=== PATIENT | male | born 1985 | race Caucasian/White ===

== ENCOUNTER 2022-09-06 16:28 | Inpatient (IN) | payer MEDICAID, OTHER ==
[~2022-09-06] VITALS: Ht 180.3 cm; Wt 84.4 kg
[2022-09-06 18:19] LABS: Basophils # (auto) 0.1 10 ^3/uL (0-0.2); Basophils % (auto) 1.3 % (0.0-2.0); Eosinophils # (auto) 0.2 10 ^3/uL (0-0.8); Eosinophils % (auto) 2.9 % (0.0-7.0); Hematocrit 26.1 % (41.0-53.0); Hemoglobin 8.8 g/dL (13.5-17.5); Lymphocytes # (auto) 1.3 10 ^3/uL (0.4-5.4); Lymphocytes % (auto) 17.3 % (10.0-50.0); Mean Corpuscular Hemoglobin 28.6 pg (28.0-32.0); Mean Corpuscular Hgb Conc. 33.8 g/dL (32.0-36.0); Mean Corpuscular Volume 84.7 fL (80.0-100.0); Monocytes # (auto) 0.4 10 ^3/uL (0-1.3); Monocytes % (auto) 5.8 % (0.0-12.0); Neutrophils # (auto) 5.5 10 ^3/uL (1.6-8.6); Neutrophils % (auto) 72.7 % (37.0-80.0); Red Blood Cells 3.08 10^6/uL (4.5-5.90); Red Cell Distribution Width 16.4 % (11.8-14.3); White Blood Cell 7.6 10^3/uL (4.4-10.8)
[2022-09-06] MEDS ORDERED: FUROSEMIDE 100 MG/10ML VIAL IV ONE (18:30)
[2022-09-06 18:37] LABS: Albumin 1.3 g/dL (3.4-5.0); Calcium 6.2 mg/dL (8.5-10.1); Magnesium 1.9 mg/dL (1.6-2.6); Potassium 4.2 mmol/L (3.5-5.1)
[2022-09-06 18:40] LABS: Bilirubin, Total 0.1 mg/dL (0.2-1.0); Total Protein 4.5 g/dL (6.4-8.2)
[2022-09-06] MEDS ORDERED: ACETAMINOPHEN 325 MG TAB PO PRN (21:00)
[2022-09-06] MEDS ORDERED: ONDANSETRON HCL 4 MG/2 ML VIAL IV PRN (21:00)
[2022-09-06] MEDS ORDERED: TEMAZEPAM 15 MG CAP PO PRN (21:00)
[2022-09-07 03:54] LABS: Urine Bacteria NONE SEEN /hpf (None Seen); Urine Blood TRACE /uL (Negative); Urine Hyaline Cast FEW /lpf (0 - 2); Urine Specific Gravity 1.013 (1.001-1.035); Urine WBC 4 /hpf (0 - 3)
[2022-09-07 04:06] LABS: Alcohol, Urine < 3.0 mg/dL (0-10); Amphetamine Screen, Urine NEGATIVE (NEGATIVE); Barbiturate Scree,Urine NEGATIVE (NEGATIVE); Benzodiazephine Screen, Urine NEGATIVE (NEGATIVE); Cannabinoid Screen, Urine POSITIVE (NEGATIVE); Cocaine Screen, Urine NEGATIVE (NEGATIVE); Opiate Scree,Urine POSITIVE (NEGATIVE); Phencyclidine Screen, Urine NEGATIVE (NEGATIVE)
[2022-09-07] MEDS ORDERED: OXYCODONE W/ ACETAMINOPHEN 5/325MG TABLET PO ONE (04:30)
[2022-09-07] MEDS: FUROSEMIDE 20 MG/2 ML VIAL IV SCH ×2 (06:14→18:37)
[2022-09-07 09:58] LABS: Basophils # (auto) 0.1 10 ^3/uL (0-0.2); Basophils % (auto) 1.4 % (0.0-2.0); Eosinophils # (auto) 0.3 10 ^3/uL (0-0.8); Eosinophils % (auto) 3.9 % (0.0-7.0); Hematocrit 27.9 % (41.0-53.0); Hemoglobin 9.2 g/dL (13.5-17.5); Lymphocytes # (auto) 1.7 10 ^3/uL (0.4-5.4); Lymphocytes % (auto) 20.9 % (10.0-50.0); Mean Corpuscular Hemoglobin 28.8 pg (28.0-32.0); Mean Corpuscular Hgb Conc. 33.2 g/dL (32.0-36.0); Mean Corpuscular Volume 86.8 fL (80.0-100.0); Monocytes # (auto) 0.5 10 ^3/uL (0-1.3); Monocytes % (auto) 6.5 % (0.0-12.0); Neutrophils # (auto) 5.4 10 ^3/uL (1.6-8.6); Neutrophils % (auto) 67.3 % (37.0-80.0); Red Blood Cells 3.21 10^6/uL (4.5-5.90); Red Cell Distribution Width 16.4 % (11.8-14.3)
[2022-09-07 10:16] LABS: Albumin 1.3 g/dL (3.4-5.0); Calcium 6.5 mg/dL (8.5-10.1); Potassium 4.1 mmol/L (3.5-5.1)
[2022-09-07 10:19] LABS: BUN/Creatinine Ratio 7.5; Bilirubin, Total 0.1 mg/dL (0.2-1.0); Total Protein 4.4 g/dL (6.4-8.2)
[2022-09-07] MEDS: PANTOPRAZOLE 40 MG TAB PO SCH (10:43)
[2022-09-07 11:01] LABS: Protein, Urine 1025.7 mg/dL (0.0-11.9)
[2022-09-07 17:46] VITALS: BP 150/97
[2022-09-07 22:44] VITALS: BP 145/84
[2022-09-08] MEDS: FUROSEMIDE 20 MG/2 ML VIAL IV SCH ×2 (05:05→17:58)
[2022-09-08] MEDS: HYDROcodone-ACET 5/325MG TAB PO PRN ×2 (05:10→20:17)
[2022-09-08 05:38] VITALS: BP 141/81
[2022-09-08] MEDS: PANTOPRAZOLE 40 MG TAB PO SCH (10:00)
[2022-09-08 10:25] VITALS: BP 143/81
[2022-09-08] MEDS: SODIUM BICARBONATE 50ML VIAL 50 ML in SOD CHL 0.45% 1,000 ML IV SCH (11:00)
[2022-09-08 12:12] VITALS: BP 132/77
[2022-09-08 16:34] VITALS: BP 129/80
[2022-09-08 22:00] VITALS: BP 134/91
[2022-09-08 22:27] LABS: BUN/Creatinine Ratio 6.6; Calcium 6.2 mg/dL (8.5-10.1); Potassium 4.3 mmol/L (3.5-5.1)
[2022-09-08 22:40] LABS: Free T3 1.91 pg/mL (2.3-4.2); Free T4 (Free Thyroxine) 0.58 ng/dL (0.89-1.76)
[2022-09-09 05:00] VITALS: BP 136/83
[2022-09-09] MEDS: FUROSEMIDE 20 MG/2 ML VIAL IV SCH (06:22)
[2022-09-09] MEDS: SODIUM BICARBONATE 50ML VIAL 50 ML in SOD CHL 0.45% 1,000 ML IV SCH (06:24)
[2022-09-09 06:53] LABS: Hemoglobin 7.5 g/dL (13.5-17.5)
[2022-09-09 06:55] LABS: Basophils # (auto) 0.1 10 ^3/uL (0-0.2); Basophils % (auto) 1.5 % (0.0-2.0); Eosinophils # (auto) 0.2 10 ^3/uL (0-0.8); Eosinophils % (auto) 3.2 % (0.0-7.0); Hematocrit 22.4 % (41.0-53.0); Lymphocytes # (auto) 1.6 10 ^3/uL (0.4-5.4); Lymphocytes % (auto) 24.9 % (10.0-50.0); Mean Corpuscular Hemoglobin 28.2 pg (28.0-32.0); Mean Corpuscular Hgb Conc. 33.6 g/dL (32.0-36.0); Mean Corpuscular Volume 83.9 fL (80.0-100.0); Monocytes # (auto) 0.5 10 ^3/uL (0-1.3); Monocytes % (auto) 7.3 % (0.0-12.0); Neutrophils % (auto) 63.1 % (37.0-80.0); Red Blood Cells 2.67 10^6/uL (4.5-5.90); Red Cell Distribution Width 15.9 % (11.8-14.3); White Blood Cell 6.3 10^3/uL (4.4-10.8)
[2022-09-09 07:10] LABS: Calcium 6.2 mg/dL (8.5-10.1); Magnesium 1.9 mg/dL (1.6-2.6); Potassium 4.1 mmol/L (3.5-5.1)
[2022-09-09] MEDS: HYDROcodone-ACET 5/325MG TAB PO PRN ×2 (09:24→20:41)
[2022-09-09] MEDS: PANTOPRAZOLE 40 MG TAB PO SCH (09:34)
[2022-09-09] MEDS: HEPARIN SODIUM (PORCINE) 5000 UNITS/ML 1ML VIAL SC SCH ×2 (09:35→22:00)
[2022-09-09] MEDS: LEVOTHYROXINE SODIUM 25 MCG TAB PO SCH (12:51)
[2022-09-09 13:13] VITALS: BP 135/68
[2022-09-09] MEDS: SODIUM BICARBONATE 650 MG TAB PO SCH ×2 (14:46→22:39)
[2022-09-09 17:00] VITALS: BP 132/83
[2022-09-09] MEDS: BUMETANIDE 2.5mg/10ml (0.25 mg/ml) INJ IV SCH (17:36)
[2022-09-09] MEDS: SEVELAMER 800 MG TAB PO SCH (17:36)
[2022-09-09 22:00] VITALS: BP 136/86
[2022-09-09 22:33] LABS: INR 1.09 (0.9-1.15); Partial Thromboplastin Time 28.2 sec (24.6-33.4)
[2022-09-10 05:08] VITALS: BP 145/79
[2022-09-10] MEDS: LEVOTHYROXINE SODIUM 25 MCG TAB PO SCH (06:32)
[2022-09-10] MEDS: SODIUM BICARBONATE 650 MG TAB PO SCH ×3 (06:32→21:45)
[2022-09-10] MEDS: BUMETANIDE 2.5mg/10ml (0.25 mg/ml) INJ IV SCH ×2 (06:32→17:58)
[2022-09-10] MEDS: SEVELAMER 800 MG TAB PO SCH ×3 (08:26→17:58)
[2022-09-10] MEDS: HYDROcodone-ACET 5/325MG TAB PO PRN ×2 (08:27→21:46)
[2022-09-10 09:01] VITALS: BP 198/113
[2022-09-10] MEDS: PANTOPRAZOLE 40 MG TAB PO SCH (09:59)
[2022-09-10] MEDS: HEPARIN SODIUM (PORCINE) 5000 UNITS/ML 1ML VIAL SC SCH ×2 (10:11→21:46)
[2022-09-10 13:00] VITALS: BP_SYST 133; BP_SYST 144; BP_DIAS 73; BP_DIAS 80
[2022-09-10 17:00] VITALS: BP 130/83
[2022-09-10 22:00] VITALS: BP 120/76
[2022-09-10 23:38] LABS: Albumin 1.2 g/dL (3.4-5.0); Calcium 6.7 mg/dL (8.5-10.1)
[2022-09-10 23:43] LABS: Bilirubin, Total 0.2 mg/dL (0.2-1.0); Total Protein 3.8 g/dL (6.4-8.2)
[2022-09-11 05:00] VITALS: BP 140/91
[2022-09-11] MEDS: SODIUM BICARBONATE 650 MG TAB PO SCH ×3 (06:07→22:18)
[2022-09-11] MEDS: BUMETANIDE 2.5mg/10ml (0.25 mg/ml) INJ IV SCH ×2 (06:07→18:47)
[2022-09-11] MEDS: LEVOTHYROXINE SODIUM 25 MCG TAB PO SCH (06:14)
[2022-09-11] MEDS: SEVELAMER 800 MG TAB PO SCH ×4 (08:17→18:48)
[2022-09-11] MEDS: HYDROcodone-ACET 5/325MG TAB PO PRN ×2 (08:18→22:18)
[2022-09-11 09:00] VITALS: BP 140/81
[2022-09-11] MEDS: PANTOPRAZOLE 40 MG TAB PO SCH (09:42)
[2022-09-11] MEDS: HEPARIN SODIUM (PORCINE) 5000 UNITS/ML 1ML VIAL SC SCH (09:43)
[2022-09-11] MEDS: SODIUM FERR GLUC 62.5MG/5ML 125 MG in SODIUM CHL 0.9% 100 ML IV SCH (12:41)
[2022-09-11 13:00] VITALS: BP 151/86
[2022-09-11 17:00] VITALS: BP 142/80
[2022-09-11 20:48] LABS: Alcohol, Urine < 3.0 mg/dL (0-10); Amphetamine Screen, Urine NEGATIVE (NEGATIVE); Barbiturate Scree,Urine NEGATIVE (NEGATIVE); Benzodiazephine Screen, Urine NEGATIVE (NEGATIVE); Cocaine Screen, Urine NEGATIVE (NEGATIVE); Opiate Scree,Urine POSITIVE (NEGATIVE); Phencyclidine Screen, Urine NEGATIVE (NEGATIVE)
[2022-09-11 20:52] LABS: Cannabinoid Screen, Urine NEGATIVE (NEGATIVE)
[2022-09-11 21:42] VITALS: BP 160/80
[2022-09-12 05:00] VITALS: BP 140/75
[2022-09-12] MEDS: SODIUM BICARBONATE 650 MG TAB PO SCH ×3 (06:00→22:00)
[2022-09-12] MEDS: BUMETANIDE 2.5mg/10ml (0.25 mg/ml) INJ IV SCH ×2 (06:52→18:00)
[2022-09-12 06:53] LABS: Eosinophils # (auto) 0.2 10 ^3/uL (0-0.8); Hemoglobin 7.3 g/dL (13.5-17.5); Mean Corpuscular Hemoglobin 28.8 pg (28.0-32.0); Monocytes # (auto) 0.4 10 ^3/uL (0-1.3)
[2022-09-12] MEDS: LEVOTHYROXINE SODIUM 25 MCG TAB PO SCH (06:53)
[2022-09-12 06:55] LABS: Basophils # (auto) 0.1 10 ^3/uL (0-0.2); Basophils % (auto) 1.4 % (0.0-2.0); Eosinophils % (auto) 2.9 % (0.0-7.0); Hematocrit 21.1 % (41.0-53.0); Lymphocytes # (auto) 1.6 10 ^3/uL (0.4-5.4); Lymphocytes % (auto) 23.5 % (10.0-50.0); Mean Corpuscular Hgb Conc. 34.6 g/dL (32.0-36.0); Mean Corpuscular Volume 83.4 fL (80.0-100.0); Monocytes % (auto) 5.6 % (0.0-12.0); Neutrophils # (auto) 4.7 10 ^3/uL (1.6-8.6); Neutrophils % (auto) 66.6 % (37.0-80.0); Nucleated Red Blood Cells % 0.1 %; Red Blood Cells 2.53 10^6/uL (4.5-5.90); Red Cell Distribution Width 15.9 % (11.8-14.3)
[2022-09-12] MEDS ORDERED: SODIUM CHL 0.9% 1000 ML BAG XX ONE (07:00)
[2022-09-12 07:10] LABS: INR 1.08 (0.9-1.15); Partial Thromboplastin Time 30.2 sec (24.6-33.4)
[2022-09-12 07:14] LABS: Albumin 1.1 g/dL (3.4-5.0); Calcium 6.7 mg/dL (8.5-10.1); Potassium 3.8 mmol/L (3.5-5.1)
[2022-09-12 07:16] LABS: % Iron Saturation 44.8 % (20-55)
[2022-09-12 07:18] LABS: BUN/Creatinine Ratio 6.7; Bilirubin, Total 0.2 mg/dL (0.2-1.0); Phosphorus 8.3 mg/dL (2.5-4.90); Total Protein 4.2 g/dL (6.4-8.2)
[2022-09-12] MEDS: SEVELAMER 800 MG TAB PO SCH ×3 (08:00→18:00)
[2022-09-12 09:00] VITALS: BP 144/91
[2022-09-12] MEDS: PANTOPRAZOLE 40 MG TAB PO SCH (09:09)
[2022-09-12] MEDS: B-COMPLEX W/ C & FOLIC ACID(NEPHROVITE TAB) PO SCH (09:09)
[2022-09-12] MEDS: HYDROcodone-ACET 5/325MG TAB PO PRN (09:10)
[2022-09-12] MEDS ORDERED: HEPARIN SODIUM (PORCINE) 5000 UNITS/ML 1ML VIAL ONE (11:26)
[2022-09-12] MEDS ORDERED: fentaNYL CITRATE 100 MCG/2 ML VL ONE ×2 (11:27→12:25)
[2022-09-12] MEDS ORDERED: MIDAZOLAM HCL 2MG/2ML 2ml VIAL (1mg/ml) ONE ×2 (11:27→12:25)
[2022-09-12] MEDS ORDERED: LIDOCAINE 2%HCL (LOCAL ANESTH.) INJ 20ML MDV ONE (11:35)
[2022-09-12 12:16] VITALS: BP 143/96
[2022-09-12 12:28] VITALS: BP 135/83
[2022-09-12 13:55] LABS: Hepatitis C Antibody Negative (Negative)
[2022-09-12] MEDS: SODIUM FERR GLUC 62.5MG/5ML 125 MG in SODIUM CHL 0.9% 100 ML IV SCH (14:54)
[2022-09-12] MEDS ORDERED: ALBUMIN 25% 100 ML IV SCH (17:00)
[2022-09-12] MEDS ORDERED: EPOETIN ALFA-EPBX 10,000 UNIT/1ML VIAL SC ONE (21:00)
[2022-09-12 21:49] VITALS: BP 145/94
[2022-09-13 04:53] VITALS: BP 134/91
[2022-09-13] MEDS: BUMETANIDE 2.5mg/10ml (0.25 mg/ml) INJ IV SCH ×2 (06:35→17:41)
[2022-09-13] MEDS: SODIUM BICARBONATE 650 MG TAB PO SCH ×3 (06:36→21:13)
[2022-09-13] MEDS: LEVOTHYROXINE SODIUM 25 MCG TAB PO SCH (06:36)
[2022-09-13 07:02] LABS: Albumin 1.3 g/dL (3.4-5.0); Calcium 6.9 mg/dL (8.5-10.1)
[2022-09-13 07:08] LABS: BUN/Creatinine Ratio 6.5; Bilirubin, Total 0.3 mg/dL (0.2-1.0); Total Protein 4.3 g/dL (6.4-8.2)
[2022-09-13 08:00] VITALS: BP 136/75
[2022-09-13] MEDS: B-COMPLEX W/ C & FOLIC ACID(NEPHROVITE TAB) PO SCH (10:11)
[2022-09-13] MEDS: PANTOPRAZOLE 40 MG TAB PO SCH (10:11)
[2022-09-13] MEDS: SEVELAMER 800 MG TAB PO SCH ×3 (10:11→17:48)
[2022-09-13 12:00] VITALS: BP 172/111
[2022-09-13] MEDS: SODIUM FERR GLUC 62.5MG/5ML 125 MG in SODIUM CHL 0.9% 100 ML IV SCH (12:21)
[2022-09-13] MEDS: HYDROcodone-ACET 5/325MG TAB PO PRN (12:31)
[2022-09-13 16:00] VITALS: BP 138/82
[2022-09-13 22:00] VITALS: BP 159/70
[2022-09-14 05:00] VITALS: BP 151/97
[2022-09-14] MEDS: BUMETANIDE 2.5mg/10ml (0.25 mg/ml) INJ IV SCH ×2 (06:27→18:17)
[2022-09-14] MEDS: LEVOTHYROXINE SODIUM 25 MCG TAB PO SCH (06:28)
[2022-09-14] MEDS: SODIUM BICARBONATE 650 MG TAB PO SCH ×3 (06:28→22:07)
[2022-09-14 08:35] VITALS: BP 134/92
[2022-09-14] MEDS: PANTOPRAZOLE 40 MG TAB PO SCH (09:13)
[2022-09-14] MEDS: B-COMPLEX W/ C & FOLIC ACID(NEPHROVITE TAB) PO SCH (09:13)
[2022-09-14] MEDS: SEVELAMER 800 MG TAB PO SCH ×3 (09:13→18:15)
[2022-09-14 12:40] VITALS: BP 149/92
[2022-09-14] MEDS: SODIUM FERR GLUC 62.5MG/5ML 125 MG in SODIUM CHL 0.9% 100 ML IV SCH (13:05)
[2022-09-14 14:29] LABS: Potassium 3.8 mmol/L (3.5-5.1)
[2022-09-14 14:30] LABS: Albumin 1.3 g/dL (3.4-5.0)
[2022-09-14 14:33] LABS: BUN/Creatinine Ratio 6.7; Bilirubin, Total 0.2 mg/dL (0.2-1.0); Total Protein 4.4 g/dL (6.4-8.2)
[2022-09-14] MEDS: HYDROcodone-ACET 10/325MG TAB PO PRN ×2 (16:11→22:07)
[2022-09-14 16:30] VITALS: BP 130/85
[2022-09-14 22:00] VITALS: BP 135/93
[2022-09-15] VITALS (7 sets, daily range): BP systolic 128–153; BP diastolic 72–107
[2022-09-15] MEDS: SODIUM BICARBONATE 650 MG TAB PO SCH ×3 (05:58→21:50)
[2022-09-15] MEDS: LEVOTHYROXINE SODIUM 25 MCG TAB PO SCH (05:58)
[2022-09-15] MEDS: BUMETANIDE 2.5mg/10ml (0.25 mg/ml) INJ IV SCH ×2 (05:58→18:12)
[2022-09-15] MEDS: SEVELAMER 800 MG TAB PO SCH ×3 (09:20→18:33)
[2022-09-15] MEDS: PANTOPRAZOLE 40 MG TAB PO SCH (09:21)
[2022-09-15] MEDS: B-COMPLEX W/ C & FOLIC ACID(NEPHROVITE TAB) PO SCH (09:21)
[2022-09-15] MEDS ORDERED: PANT40T PO (10:58)
[2022-09-15] MEDS ORDERED: SEVE800T PO (10:58)
[2022-09-15] MEDS ORDERED: LEV25T PO (10:58)
[2022-09-15] MEDS ORDERED: FOLITAB23 PO (10:59)
[2022-09-15] MEDS: HYDROcodone-ACET 10/325MG TAB PO PRN (17:22)
[2022-09-16 05:00] VITALS: BP 149/90
[2022-09-16] MEDS: BUMETANIDE 2.5mg/10ml (0.25 mg/ml) INJ IV SCH ×2 (06:04→18:22)
[2022-09-16] MEDS: SODIUM BICARBONATE 650 MG TAB PO SCH ×3 (06:04→21:44)
[2022-09-16] MEDS: LEVOTHYROXINE SODIUM 25 MCG TAB PO SCH (06:05)
[2022-09-16] MEDS: SEVELAMER 800 MG TAB PO SCH ×3 (08:11→18:22)
[2022-09-16 09:05] VITALS: BP 144/88
[2022-09-16] MEDS: B-COMPLEX W/ C & FOLIC ACID(NEPHROVITE TAB) PO SCH (10:17)
[2022-09-16] MEDS: HYDROcodone-ACET 10/325MG TAB PO PRN ×2 (10:18→21:45)
[2022-09-16] MEDS: PANTOPRAZOLE 40 MG TAB PO SCH (10:18)
[2022-09-16 13:07] VITALS: BP_SYST 142; BP_SYST 153; BP_DIAS 109; BP_DIAS 75
[2022-09-16 17:11] VITALS: BP 152/97
[2022-09-16 22:00] VITALS: BP 141/96
[2022-09-17 05:00] VITALS: BP 141/95
[2022-09-17] MEDS: HYDROcodone-ACET 10/325MG TAB PO PRN (06:22)
[2022-09-17] MEDS: SODIUM BICARBONATE 650 MG TAB PO SCH ×2 (06:24→14:00)
[2022-09-17] MEDS: LEVOTHYROXINE SODIUM 25 MCG TAB PO SCH (06:24)
[2022-09-17] MEDS: BUMETANIDE 2.5mg/10ml (0.25 mg/ml) INJ IV SCH (06:28)
[2022-09-17] MEDS: SEVELAMER 800 MG TAB PO SCH ×2 (08:50→12:00)
[2022-09-17 09:00] VITALS: BP 142/96
[2022-09-17] MEDS: B-COMPLEX W/ C & FOLIC ACID(NEPHROVITE TAB) PO SCH (09:56)
[2022-09-17] MEDS: PANTOPRAZOLE 40 MG TAB PO SCH (09:57)
== END 2022-09-17 14:00 | disposition home or self-care (01) | DRG 469 ==
LOC: ER 16:28 → OVERFLOW 20:59 → EAST 09-07 16:21
PROVIDERS: ADMIT Nurse Practitioner; ATTEND Internal Medicine
PROC: 0JH63XZ Insertion of Tunneled Vascular Access Device into Chest Subcutaneous Tissue and Fascia, Percutaneous Approach (ICD-10-PCS; principal; 2022-09-12)
PROC: 0TB13ZX Excision of Left Kidney, Percutaneous Approach, Diagnostic (ICD-10-PCS; 2022-09-12)
PROC: 02HV33Z Insertion of Infusion Device into Superior Vena Cava, Percutaneous Approach (ICD-10-PCS; 2022-09-12)
PROC: B548ZZA Ultrasonography of Superior Vena Cava, Guidance (ICD-10-PCS; 2022-09-12)
PROC: B5181ZA Fluoroscopy of Superior Vena Cava using Low Osmolar Contrast, Guidance (ICD-10-PCS; 2022-09-12)
PROC: 5A1D70Z Performance of Urinary Filtration, Intermittent, Less than 6 Hours Per Day (ICD-10-PCS; 2022-09-12)
PROC: 5A1D70Z Performance of Urinary Filtration, Intermittent, Less than 6 Hours Per Day (ICD-10-PCS; 2022-09-14)
DX: N17.9 Acute kidney failure, unspecified (principal); E43 Unspecified severe protein-calorie malnutrition; E87.20 Acidosis, unspecified; D63.1 Anemia in chronic kidney disease; E83.39 Other disorders of phosphorus metabolism; E88.09 Other disorders of plasma-protein metabolism, not elsewhere classified; Z20.822 Contact with and (suspected) exposure to COVID-19; N18.9 Chronic kidney disease, unspecified; E87.70 Fluid overload, unspecified; E03.9 Hypothyroidism, unspecified; I12.9 Hypertensive chronic kidney disease with stage 1 through stage 4 chronic kidney disease, or unspecified chronic kidney disease; Z68.26 Body mass index [BMI] 26.0-26.9, adult
CPT/HCPCS: 10005; 36415; 36558; 71045; 73200; 74150; 74181; 76705; 76775; 76942; 77001; 77012; 80048; 80053; 80061; 80307; 81001; 82306; 82550; 82570; 82728; 82977; 83516; 83520; 83540; 83550; 83605; 83735; 83880; 83970; 84100; 84156; 84439; 84443; 84481; 84484; 84550; 85025; 85610; 85730; 86160; 86225; 86235; 86256; 86703; 86803; 87205; 87340; 87426; 90935; 93005; 93306; 93970; 96374; 96375; 99152; G0378; J1642; J2250; P9047

== ENCOUNTER 2023-04-24 10:05 | Inpatient (IN) | payer MEDICARE, MEDICAID ==
[~2023-04-24] VITALS: Ht 180.3 cm; Wt 60.5 kg
[~2023-04-24 10:05] MED LIST: FOLITAB23 PO; LEV25T PO; PANT40T PO; SEVE800T PO
[2023-04-24 11:03] LABS: Basophils # (auto) 0.2 10 ^3/uL (0-0.2); Eosinophils # (auto) 0.3 10 ^3/uL (0-0.8); Hemoglobin 14.1 g/dL (13.5-17.5); Red Cell Distribution Width 15.5 % (11.8-14.3)
[2023-04-24 11:05] LABS: Basophils % (auto) 2.5 % (0.0-2.0); Eosinophils % (auto) 3.2 % (0.0-7.0); Hematocrit 43.1 % (41.0-53.0); Lymphocytes % (auto) 20.6 % (10.0-50.0); Mean Corpuscular Hemoglobin 33.3 pg (28.0-32.0); Mean Corpuscular Hgb Conc. 32.7 g/dL (32.0-36.0); Mean Corpuscular Volume 101.7 fL (80.0-100.0); Monocytes # (auto) 0.7 10 ^3/uL (0-1.3); Monocytes % (auto) 7.1 % (0.0-12.0); Neutrophils # (auto) 6.4 10 ^3/uL (1.6-8.6); Neutrophils % (auto) 66.6 % (37.0-80.0); Red Blood Cells 4.24 10^6/uL (4.5-5.90); White Blood Cell 9.6 10^3/uL (4.4-10.8)
[2023-04-24] MEDS ORDERED: SODIUM BICARBONATE 8.4% INJ 50ML SYRINGE IV ONE (12:30)
[2023-04-24] MEDS ORDERED: DEXTROSE (50%) 50ML SYRG IV ONE (12:30)
[2023-04-24] MEDS ORDERED: ALBUTEROL SULF 2.5 MG/0.5ML(0.5%) NEB SOLN NEB ONE (12:30)
[2023-04-24] MEDS ORDERED: SODIUM ZIRCONIUM CYCL 10 GM PAK PO ONE (12:30)
[2023-04-24] MEDS ORDERED: InsuLIN REG 1unit/0.01ml Soln (100units/ml) IV ONE (12:30)
[2023-04-24] MEDS ORDERED: CALCIUM GLUC 1,000mg/50ml-NS 50 ML IV ONE ×2 (12:30→23:15)
[2023-04-24 14:15] LABS: Alanine Aminotransferase 29 U/L (16-61); Albumin 3.3 g/dL (3.4-5.0); Anion Gap 13 (5-15); Aspartate Aminotransferase 26 U/L (15-37); BUN/Creatinine Ratio 6.4 (10.0-20.0); Blood Urea Nitrogen 72 mg/dL (7-18); Calcium 7.4 mg/dL (8.5-10.1); Carbon Dioxide 17 mmol/L (21-32); Chloride 100 mmol/L (98-107); GFR African American 7 mL/min; GFR Non-African American 5 mL/min; Glucose 106 mg/dL (74-106); Sodium 130 mmol/L (136-145)
[2023-04-24 14:17] LABS: Alkaline Phosphatase 75 U/L (45-117); Bilirubin, Total 0.3 mg/dL (0.2-1.0); Total Protein 6.9 g/dL (6.4-8.2)
[2023-04-24] MEDS ORDERED: LORazepam 2MG/ML-1ML VIAL ONE (15:11)
[2023-04-24] MEDS ORDERED: LORazepam 2MG/ML-1ML VIAL IV ONE (15:15)
[2023-04-24] MEDS ORDERED: METOPROLOL TARTRATE 1MG/1ML-5ML VIAL IV ONE (15:30)
[2023-04-24] MEDS ORDERED: MORPHINE SULFATE INJ 2 MG/ml SYRG IV PRN (16:15)
[2023-04-24] MEDS ORDERED: DEXTROSE (50%) 50ML SYRG IV PRN (16:15)
[2023-04-24] MEDS ORDERED: NITROGLYCERIN 0.4 MG SL TAB SL PRN (16:15)
[2023-04-24] MEDS ORDERED: HYDR25TA87 PO (16:21)
[2023-04-24] MEDS ORDERED: LABE100T4 PO (16:21)
[2023-04-24] MEDS: hydrALAZINE HCL 20 MG/ML VL IV PRN (18:33)
[2023-04-24] MEDS: SEVELAMER 800 MG TAB PO SCH (20:04)
[2023-04-24] MEDS: InsuLIN REG 1unit/0.01ml Soln (100units/ml) SC SCH ×2 (20:07→22:00)
[2023-04-24] MEDS: SODIUM ZIRCONIUM CYCL 10 GM PAK PO SCH ×3 (20:07→22:46)
[2023-04-24] MEDS: ACCU-CHEK COMFORT CURVE STRIP VI SCH ×2 (20:07→22:00)
[2023-04-24 20:40] LABS: Albumin 1.7 g/dL (3.4-5.0); Anion Gap 6 (5-15); Blood Urea Nitrogen 25 mg/dL (7-18); Carbon Dioxide 15 mmol/L (21-32); Chloride 124 mmol/L (98-107); Glucose 57 mg/dL (74-106); Potassium 3.2 mmol/L (3.5-5.1); Sodium 145 mmol/L (136-145)
[2023-04-24 20:43] LABS: Alanine Aminotransferase 15 U/L (16-61); Alkaline Phosphatase 30 U/L (45-117); Aspartate Aminotransferase 24 U/L (15-37); BUN/Creatinine Ratio 6.2 (10.0-20.0); Bilirubin, Total 0.1 mg/dL (0.2-1.0); GFR African American 22 mL/min; GFR Non-African American 18 mL/min; Total Protein 3.3 g/dL (6.4-8.2)
[2023-04-24] MEDS ORDERED: EPOETIN ALFA-EPBX 4,000 UNIT/ML VIAL SC ONE (21:00)
[2023-04-24 21:41] LABS: Calcium < 5.0 mg/dL (8.5-10.1)
[2023-04-24] MEDS: LABETALOL HCL PO SCH ×2 (22:00→22:53)
[2023-04-24] MEDS: hydrALAZINE HCL 25 MG TAB PO SCH (22:43)
[2023-04-24] MEDS: LABETALOL HCL 200 MG TAB PO SCH (23:32)
[2023-04-25 00:45] LABS: Urine Bacteria FEW /hpf (None Seen); Urine Blood 1+ /uL (Negative); Urine Hyaline Cast FEW /lpf (0 - 2); Urine Specific Gravity 1.019 (1.001-1.035); Urine WBC 2 /hpf (0 - 3)
[2023-04-25 01:01] LABS: Alcohol, Urine < 3.0 mg/dL (0-10); Amphetamine Screen, Urine NEGATIVE (NEGATIVE); Barbiturate Scree,Urine NEGATIVE (NEGATIVE); Cannabinoid Screen, Urine POSITIVE (NEGATIVE); Cocaine Screen, Urine NEGATIVE (NEGATIVE)
[2023-04-25 01:08] LABS: Benzodiazephine Screen, Urine NEGATIVE (NEGATIVE); Opiate Scree,Urine NEGATIVE (NEGATIVE); Phencyclidine Screen, Urine NEGATIVE (NEGATIVE)
[2023-04-25 05:46] LABS: Basophils # (auto) 0.1 10 ^3/uL (0-0.2); Basophils % (auto) 1.2 % (0.0-2.0); Eosinophils # (auto) 0.1 10 ^3/uL (0-0.8); Eosinophils % (auto) 1.8 % (0.0-7.0); Hemoglobin 12.3 g/dL (13.5-17.5); Lymphocytes # (auto) 0.8 10 ^3/uL (0.4-5.4); Lymphocytes % (auto) 14.1 % (10.0-50.0); Mean Corpuscular Hemoglobin 33.4 pg (28.0-32.0); Mean Corpuscular Hgb Conc. 34.1 g/dL (32.0-36.0); Mean Corpuscular Volume 97.8 fL (80.0-100.0); Monocytes # (auto) 0.3 10 ^3/uL (0-1.3); Monocytes % (auto) 4.4 % (0.0-12.0); Neutrophils # (auto) 4.7 10 ^3/uL (1.6-8.6); Neutrophils % (auto) 78.5 % (37.0-80.0); Red Blood Cells 3.68 10^6/uL (4.5-5.90); Red Cell Distribution Width 14.9 % (11.8-14.3)
[2023-04-25 06:03] LABS: Albumin 3.5 g/dL (3.4-5.0); BUN/Creatinine Ratio 5.3 (10.0-20.0); Bilirubin, Total 0.4 mg/dL (0.2-1.0); Calcium 7.8 mg/dL (8.5-10.1); Total Protein 6.4 g/dL (6.4-8.2)
[2023-04-25] MEDS: hydrALAZINE HCL 20 MG/ML VL IV PRN (06:22)
[2023-04-25] MEDS: ACCU-CHEK COMFORT CURVE STRIP VI SCH ×2 (06:33→11:14)
[2023-04-25] MEDS: InsuLIN REG 1unit/0.01ml Soln (100units/ml) SC SCH ×2 (06:34→11:14)
[2023-04-25 06:44] LABS: Potassium 5.7 mmol/L (3.5-5.1)
[2023-04-25] MEDS: SODIUM ZIRCONIUM CYCL 10 GM PAK PO SCH (06:58)
[2023-04-25] MEDS ORDERED: LEVOTHYROXINE SODIUM 25 MCG TAB PO SCH (07:00)
[2023-04-25] MEDS ORDERED: B-COMPLEX W/ C & FOLIC ACID(NEPHROVITE TAB) PO SCH (08:00)
[2023-04-25] MEDS: SEVELAMER 800 MG TAB PO SCH ×2 (08:07→12:06)
[2023-04-25] MEDS: LABETALOL HCL 200 MG TAB PO SCH (09:28)
[2023-04-25] MEDS: hydrALAZINE HCL 25 MG TAB PO SCH (09:28)
[2023-04-25] MEDS ORDERED: PANTOPRAZOLE 40 MG TAB PO SCH (10:00)
[2023-04-25 12:00] VITALS: BP 136/106
[2023-04-25] MEDS ORDERED: FOLITAB23 PO (13:02)
== END 2023-04-25 13:35 | disposition home or self-care (01) | DRG 640 ==
LOC: ER 10:05 → TELE 16:07
PROVIDERS: ADMIT Nurse Practitioner Family; ATTEND Internal Medicine
PROC: 5A1D70Z Performance of Urinary Filtration, Intermittent, Less than 6 Hours Per Day (ICD-10-PCS; principal; 2023-04-24)
DX: E87.5 Hyperkalemia (principal); N18.6 End stage renal disease; E87.20 Acidosis, unspecified; Z99.2 Dependence on renal dialysis; Z91.199 Patient's noncompliance with other medical treatment and regimen due to unspecified reason; Z91.158 Patient's noncompliance with renal dialysis for other reason
CPT/HCPCS: 36415; 80053; 80307; 81001; 82962; 84132; 84484; 85025; 90935; 93005; 94640; 96374; 96375; G0378; J1642

== ENCOUNTER 2023-11-06 06:31 | Inpatient (IN) | payer OTHER, MEDICAID ==
[~2023-11-06] VITALS: Ht 180.3 cm; Wt 64.3 kg
[2023-11-06] VITALS (35 sets, daily range): BP systolic 120–196; BP diastolic 86–139; PULSE 81–139; RESP 14–27; TEMP 96.6–97.9; O2SAT 91–99
[~2023-11-06 06:31] MED LIST changes: +HYDR25TA87 PO; +LABE100T4 PO
[2023-11-06 07:24] LABS: Basophils # (auto) 0.1 10 ^3/uL (0-0.2); Basophils % (auto) 0.8 % (0.0-2.0); Eosinophils # (auto) 0.2 10 ^3/uL (0-0.8); Eosinophils % (auto) 1.3 % (0.0-7.0); Hematocrit 41.7 % (41.0-53.0); Hemoglobin 13.2 g/dL (13.5-17.5); Lymphocytes # (auto) 1.1 10 ^3/uL (0.4-5.4); Lymphocytes % (auto) 7.9 % (10.0-50.0); Mean Corpuscular Hemoglobin 31.8 pg (28.0-32.0); Mean Corpuscular Hgb Conc. 31.8 g/dL (32.0-36.0); Mean Corpuscular Volume 100.2 fL (80.0-100.0); Monocytes # (auto) 0.5 10 ^3/uL (0-1.3); Monocytes % (auto) 3.6 % (0.0-12.0); Neutrophils # (auto) 12.1 10 ^3/uL (1.6-8.6); Neutrophils % (auto) 86.4 % (37.0-80.0); Red Blood Cells 4.16 10^6/uL (4.5-5.90); Red Cell Distribution Width 16.2 % (11.8-14.3)
[2023-11-06 07:35] LABS: INR 0.98 (0.9-1.15); Partial Thromboplastin Time 23.9 SEC (24.5-34.5); Prothrombin Time 10.3 sec (9.3-11.8)
[2023-11-06 07:37] LABS: Alanine Aminotransferase 108 U/L (7-40); Albumin 4.1 g/dL (3.2-4.8); Alkaline Phosphatase 122 U/L (46-116); Anion Gap 15 (5-15); Aspartate Aminotransferase 103 U/L (13-40); BUN/Creatinine Ratio 9.7 (10.0-20.0); Blood Urea Nitrogen 73 mg/dL (9-23); Calcium 8.6 mg/dL (8.5-10.1); Carbon Dioxide 21 mmol/L (20-30); Chloride 102 mmol/L (98-107); Glucose 90 mg/dL (74-106); Sodium 138 mmol/L (136-145)
[2023-11-06 07:38] LABS: Bilirubin, Total < 0.2 mg/dL (0.2-1.0); Total Protein 6.2 g/dL (5.7-8.2)
[2023-11-06 07:47] LABS: Potassium 6.5 mmol/L (3.5-5.1)
[2023-11-06] MEDS ORDERED: ALBUTEROL SULF 2.5 MG/0.5ML(0.5%) NEB SOLN NEB ONE (08:00)
[2023-11-06] MEDS ORDERED: SODIUM ZIRCONIUM CYCL 10 GM PAK PO ONE (08:00)
[2023-11-06] MEDS ORDERED: CALCIUM GLUC 1,000mg/50ml-NS 50 ML IV ONE (08:00)
[2023-11-06] MEDS ORDERED: DEXTROSE (50%) 50ML SYRG IV ONE (08:00)
[2023-11-06] MEDS ORDERED: FUROSEMIDE 20 MG/2 ML VIAL IV ONE (08:00)
[2023-11-06] MEDS ORDERED: InsuLIN REG 1unit/0.01ml Soln (100units/ml) IV ONE (08:00)
[2023-11-06] MEDS ORDERED: SODIUM CHL 0.9% 1000 ML BAG XX ONE (09:45)
[2023-11-06] MEDS ORDERED: LORazepam 2MG/ML-1ML VIAL IV ONE (10:30)
[2023-11-06 10:33] LABS: Hepatitis B Surface Antigen Negative (Negative)
[2023-11-06 10:53] LABS: Hepatitis A Ab IgM Negative
[2023-11-06 10:54] LABS: Hepatitis B Core IgM Negative; Hepatitis C Antibody Negative (Negative)
[2023-11-06] MEDS ORDERED: ETOMIDATE (2MG/ML) 20ML VIAL IV ONE ×2 (11:03→15:00)
[2023-11-06] MEDS ORDERED: SUCCINYLCHOLINE CHLORIDE 20 MG/ML 10ML VIAL IV ONE ×3 (11:03→11:45)
[2023-11-06] MEDS ORDERED: MORPHINE SULFATE INJ 2 MG/ml SYRG IV PRN (11:15)
[2023-11-06] MEDS ORDERED: NITROGLYCERIN 0.4 MG SL TAB SL PRN (11:15)
[2023-11-06] MEDS ORDERED: PANTOPRAZOLE 40 MG/10 ML VIAL INJ IV ONE (11:15)
[2023-11-06] MEDS ORDERED: MIDAZOLAM DRIP 50 mg/50mL 50 ML IV ONE (11:23)
[2023-11-06] MEDS ORDERED: AZITHROMYCIN 500MG/ 250ML 250 ML IV ONE (11:30)
[2023-11-06] MEDS: PROPOFOL 100 ML IV SCH ×3 (11:30→22:06)
[2023-11-06] MEDS: MIDAZOLAM DRIP 50 mg/50mL 50 ML IV SCH ×3 (11:30→22:06)
[2023-11-06] MEDS ORDERED: cefTRIAXone 1GM/50ML D5W 50 ML IV ONE (11:30)
[2023-11-06] MEDS ORDERED: fentaNYL Drip 2500mCg/250mlNS 250 ML IV ONE (11:59)
[2023-11-06] MEDS: fentaNYL Drip 2500mCg/250mlNS 250 ML IV SCH ×2 (12:00→23:26)
[2023-11-06 12:53] LABS: Lactic Acid w/Reflex 6.9 mmol/L (0.4-2.0)
[2023-11-06] MEDS: ALBUTEROL SULF 2.5 MG/0.5ML(0.5%) NEB SOLN NEB SCH ×3 (14:00→22:33)
[2023-11-06] MEDS: IPRATROPIUM BROM 0.5 MG/2.5ML INH SOL NEB SCH ×3 (14:00→22:33)
[2023-11-06] MEDS ORDERED: SODIUM BICARBONATE 8.4% INJ 50ML SYRINGE IV ONE (15:49)
[2023-11-06] MEDS ORDERED: CALCIUM CHLOR(10%) 100MG/ML 10ML SYRINGE IV ONE (15:49)
[2023-11-06 17:05] LABS: Base Excess 5.8 mmol/L (-2.0-2.0)
[2023-11-06] MEDS: hydrALAZINE HCL 20 MG/ML VL IV PRN ×2 (17:11→23:20)
[2023-11-06] MEDS ORDERED: DEXTROSE 50% SYRINGE 50 ML IV ONE (17:49)
[2023-11-06] MEDS ORDERED: METOPROLOL TARTRATE 1MG/1ML-5ML VIAL IV ONE ×2 (18:15→18:30)
[2023-11-06 19:00] LABS: Amphetamine Screen, Urine Neg (NEGATIVE); Barbiturate Scree,Urine Neg (NEGATIVE); Benzodiazephine Screen, Urine Neg (NEGATIVE); Cannabinoid Screen, Urine Neg (NEGATIVE); Cocaine Screen, Urine Neg (NEGATIVE); Opiate Scree,Urine Neg (NEGATIVE); Phencyclidine Screen, Urine Neg (NEGATIVE)
[2023-11-06] MEDS ORDERED: DEXTROSE (50%) 50ML SYRG IV PRN (19:00)
[2023-11-06] MEDS ORDERED: MORPHINE SULFATE 4 MG/ML SYR/VIAL IV ONE (19:30)
[2023-11-06] MEDS: ACCU-CHEK COMFORT CURVE STRIP VI SCH ×2 (20:24→22:42)
[2023-11-06 21:58] LABS: COVID19 ANTIGEN SOFIA FIA NEGATIVE (NEGATIVE)
[2023-11-06] MEDS ORDERED: dilTIAZem 25 MG/5 ML VIAL IV ONE (22:30)
[2023-11-06] MEDS: HEPARIN SODIUM (PORCINE) 5000 UNITS/ML 1ML VIAL SC SCH (22:45)
[2023-11-06] MEDS ORDERED: ENALAPRILAT 1.25 MG/ML-1ML VIAL IV ONE (23:45)
[2023-11-07] VITALS (105 sets, daily range): BP systolic 103–175; BP diastolic 67–129; PULSE 87–129; RESP 13–26; TEMP 97–99; O2SAT 95–98
[2023-11-07] MEDS: ACCU-CHEK COMFORT CURVE STRIP VI SCH ×12 (00:06→22:18)
[2023-11-07] MEDS: MIDAZOLAM DRIP 50 mg/50mL 50 ML IV SCH ×7 (01:35→21:19)
[2023-11-07 02:03] LABS: Rapid Influenza A Negative (Negative); Rapid Influenza B Negative (Negative)
[2023-11-07] MEDS: PROPOFOL 100 ML IV SCH ×5 (02:33→23:46)
[2023-11-07] MEDS: ALBUTEROL SULF 2.5 MG/0.5ML(0.5%) NEB SOLN NEB SCH ×6 (02:53→22:32)
[2023-11-07] MEDS: IPRATROPIUM BROM 0.5 MG/2.5ML INH SOL NEB SCH ×6 (02:54→22:33)
[2023-11-07] MEDS ORDERED: dilTIAZem 125mg/125ml BAG KIT 100 ML IV SCH (04:30)
[2023-11-07 04:31] LABS: Basophils # (auto) 0 10 ^3/uL (0-0.2); Basophils % (auto) 0.4 % (0.0-2.0); Eosinophils # (auto) 0 10 ^3/uL (0-0.8); Eosinophils % (auto) 0.4 % (0.0-7.0); Hematocrit 42.8 % (41.0-53.0); Hemoglobin 14.2 g/dL (13.5-17.5); Lymphocytes # (auto) 1.1 10 ^3/uL (0.4-5.4); Lymphocytes % (auto) 10.5 % (10.0-50.0); Mean Corpuscular Hemoglobin 32.2 pg (28.0-32.0); Mean Corpuscular Volume 97.4 fL (80.0-100.0); Monocytes # (auto) 0.5 10 ^3/uL (0-1.3); Monocytes % (auto) 4.5 % (0.0-12.0); Neutrophils # (auto) 8.8 10 ^3/uL (1.6-8.6); Neutrophils % (auto) 84.2 % (37.0-80.0); Red Cell Distribution Width 15.7 % (11.8-14.3); White Blood Cell 10.4 10^3/uL (4.4-10.8)
[2023-11-07 05:36] LABS: Alanine Aminotransferase 192 U/L (7-40); Albumin 3.9 g/dL (3.2-4.8); Alkaline Phosphatase 161 U/L (46-116); Anion Gap 14 (5-15); Aspartate Aminotransferase 136 U/L (13-40); BUN/Creatinine Ratio 8.3 (10.0-20.0); Calcium 9.1 mg/dL (8.5-10.1); Carbon Dioxide 30 mmol/L (20-30); Chloride 96 mmol/L (98-107); Glucose 94 mg/dL (74-106); Potassium 4.3 mmol/L (3.5-5.1); Sodium 140 mmol/L (136-145)
[2023-11-07 05:37] LABS: Bilirubin, Total < 0.2 mg/dL (0.2-1.0); Total Protein 6.2 g/dL (5.7-8.2)
[2023-11-07 05:56] LABS: Blood Urea Nitrogen 54 mg/dL (9-23)
[2023-11-07] MEDS: hydrALAZINE HCL 20 MG/ML VL IV PRN (06:38)
[2023-11-07 07:54] LABS: Base Excess 6.3 mmol/L (-2.0-2.0)
[2023-11-07] MEDS: fentaNYL Drip 2500mCg/250mlNS 250 ML IV SCH ×2 (08:33→15:38)
[2023-11-07] MEDS: HEPARIN SODIUM (PORCINE) 5000 UNITS/ML 1ML VIAL SC SCH ×2 (09:43→22:27)
[2023-11-07] MEDS ORDERED: METOPROLOL TARTRATE 1MG/1ML-5ML VIAL IV SCH (10:00)
[2023-11-07] MEDS: cefTRIAXone 1GM/50ML D5W 50 ML IV SCH (10:02)
[2023-11-07] MEDS: AZITHROMYCIN 500MG/ 250ML 250 ML IV SCH (10:03)
[2023-11-07] MEDS: PANTOPRAZOLE 40 MG/10 ML VIAL INJ IV SCH (10:03)
[2023-11-07] MEDS ORDERED: LABETALOL HCL 200 MG TAB PO ONE (13:00)
[2023-11-07] MEDS ORDERED: hydrALAZINE HCL 25 MG TAB PO ONE (13:00)
[2023-11-07] MEDS: hydrALAZINE HCL 25 MG TAB PO SCH ×2 (14:43→22:22)
[2023-11-07] MEDS: LABETALOL HCL 200 MG TAB PO SCH (22:22)
[2023-11-08] VITALS (110 sets, daily range): BP systolic 117–147; BP diastolic 77–92; PULSE 71–130; RESP 13–18; TEMP 42.1; O2SAT 95–99
[2023-11-08] MEDS: ACCU-CHEK COMFORT CURVE STRIP VI SCH ×9 (00:12→20:22)
[2023-11-08] MEDS: fentaNYL Drip 2500mCg/250mlNS 250 ML IV SCH ×3 (00:15→16:51)
[2023-11-08] MEDS: MIDAZOLAM DRIP 50 mg/50mL 50 ML IV SCH ×7 (01:16→22:42)
[2023-11-08] MEDS: IPRATROPIUM BROM 0.5 MG/2.5ML INH SOL NEB SCH ×4 (02:11→22:15)
[2023-11-08] MEDS: ALBUTEROL SULF 2.5 MG/0.5ML(0.5%) NEB SOLN NEB SCH ×4 (02:11→22:15)
[2023-11-08] MEDS: PROPOFOL 100 ML IV SCH ×5 (05:25→22:37)
[2023-11-08] MEDS: hydrALAZINE HCL 25 MG TAB PO SCH ×3 (06:32→21:31)
[2023-11-08 07:11] LABS: Basophils # (auto) 0.1 10 ^3/uL (0-0.2); Basophils % (auto) 0.8 % (0.0-2.0); Eosinophils # (auto) 0 10 ^3/uL (0-0.8); Eosinophils % (auto) 0.6 % (0.0-7.0); Hematocrit 30.2 % (41.0-53.0); Hemoglobin 9.8 g/dL (13.5-17.5); Lymphocytes # (auto) 1.5 10 ^3/uL (0.4-5.4); Lymphocytes % (auto) 24.5 % (10.0-50.0); Mean Corpuscular Hgb Conc. 32.4 g/dL (32.0-36.0); Mean Corpuscular Volume 98.6 fL (80.0-100.0); Monocytes # (auto) 0.3 10 ^3/uL (0-1.3); Monocytes % (auto) 4.8 % (0.0-12.0); Neutrophils # (auto) 4.1 10 ^3/uL (1.6-8.6); Neutrophils % (auto) 69.3 % (37.0-80.0); Nucleated Red Blood Cells % 0.1 %; Red Blood Cells 3.06 10^6/uL (4.5-5.90); Red Cell Distribution Width 15.7 % (11.8-14.3)
[2023-11-08 07:41] LABS: Alanine Aminotransferase 101 U/L (7-40); Albumin 3.1 g/dL (3.2-4.8); Alkaline Phosphatase 104 U/L (46-116); Anion Gap 14 (5-15); Aspartate Aminotransferase 40 U/L (13-40); BUN/Creatinine Ratio 9.3 (10.0-20.0); Bilirubin, Total < 0.2 mg/dL (0.2-1.0); Calcium 8.2 mg/dL (8.5-10.1); Carbon Dioxide 31 mmol/L (20-30); Chloride 95 mmol/L (98-107); Glucose 79 mg/dL (74-106); Potassium 5.2 mmol/L (3.5-5.1); Sodium 140 mmol/L (136-145); Total Protein 4.9 g/dL (5.7-8.2)
[2023-11-08 07:54] LABS: Blood Urea Nitrogen 73 mg/dL (9-23)
[2023-11-08] MEDS ORDERED: SODIUM CHL 0.9% 1000 ML BAG XX ONE (08:00)
[2023-11-08 08:06] LABS: Base Excess 4.4 mmol/L (-2.0-2.0)
[2023-11-08] MEDS: cefTRIAXone 1GM/50ML D5W 50 ML IV SCH (09:07)
[2023-11-08 10:03] LABS: % Iron Saturation 56.8 % (20-55)
[2023-11-08] MEDS: PANTOPRAZOLE 40 MG/10 ML VIAL INJ IV SCH (13:29)
[2023-11-08] MEDS: AZITHROMYCIN 500MG/ 250ML 250 ML IV SCH (13:30)
[2023-11-08] MEDS: LABETALOL HCL 200 MG TAB PO SCH (13:30)
[2023-11-08] MEDS: HEPARIN SODIUM (PORCINE) 5000 UNITS/ML 1ML VIAL SC SCH ×2 (14:29→21:35)
[2023-11-08] MEDS ORDERED: VANCOMYCIN PER PHARMACY 0 MG IV SCH (17:00)
[2023-11-08] MEDS: DexmedeTOMIDine 200 MCG in D5W 5% 48 ML IV SCH (17:15)
[2023-11-08] MEDS ORDERED: DEXTROSE (50%) 50ML SYRG IV PRN (17:15)
[2023-11-08] MEDS ORDERED: VANCOMYCIN 1GM/200ML 200 ML IV ONE (17:45)
[2023-11-08] MEDS: InsuLIN REG 1unit/0.01ml Soln (100units/ml) SC SCH (20:00)
[2023-11-08] MEDS ORDERED: EPOETIN ALFA-EPBX 10,000 UNIT/1ML VIAL SC ONE (21:00)
[2023-11-09] VITALS (108 sets, daily range): BP systolic 97–187; BP diastolic 40–128; PULSE 64–89; RESP 10–33; TEMP 96.1–98.4; O2SAT 91–100
[2023-11-09] MEDS: LABETALOL HCL 200 MG TAB PO SCH ×3 (00:09→21:15)
[2023-11-09] MEDS: ACCU-CHEK COMFORT CURVE STRIP VI SCH ×7 (00:13→23:20)
[2023-11-09] MEDS: IPRATROPIUM BROM 0.5 MG/2.5ML INH SOL NEB SCH ×6 (02:18→22:42)
[2023-11-09] MEDS: ALBUTEROL SULF 2.5 MG/0.5ML(0.5%) NEB SOLN NEB SCH ×6 (02:18→22:42)
[2023-11-09] MEDS: fentaNYL Drip 2500mCg/250mlNS 250 ML IV SCH (02:24)
[2023-11-09] MEDS: DexmedeTOMIDine 200 MCG in D5W 5% 48 ML IV SCH (03:18)
[2023-11-09 03:51] LABS: Basophils # (auto) 0.1 10 ^3/uL (0-0.2); Eosinophils # (auto) 0.1 10 ^3/uL (0-0.8); Eosinophils % (auto) 2.2 % (0.0-7.0); Hematocrit 28.2 % (41.0-53.0); Hemoglobin 9.3 g/dL (13.5-17.5); Lymphocytes % (auto) 19.6 % (10.0-50.0); Mean Corpuscular Hemoglobin 32.7 pg (28.0-32.0); Mean Corpuscular Hgb Conc. 32.9 g/dL (32.0-36.0); Mean Corpuscular Volume 99.5 fL (80.0-100.0); Monocytes # (auto) 0.3 10 ^3/uL (0-1.3); Monocytes % (auto) 5.8 % (0.0-12.0); Neutrophils # (auto) 3.6 10 ^3/uL (1.6-8.6); Neutrophils % (auto) 71.4 % (37.0-80.0); Red Blood Cells 2.83 10^6/uL (4.5-5.90); Red Cell Distribution Width 15.7 % (11.8-14.3)
[2023-11-09 03:55] LABS: Chloride 98 mmol/L (98-107); Potassium 4.8 mmol/L (3.5-5.1); Sodium 136 mmol/L (136-145)
[2023-11-09 03:56] LABS: Anion Gap 10 (5-15); Calcium 7.6 mg/dL (8.7-10.4); Carbon Dioxide 28 mmol/L (20-30)
[2023-11-09] MEDS: InsuLIN REG 1unit/0.01ml Soln (100units/ml) SC SCH ×7 (04:00→23:20)
[2023-11-09 04:01] LABS: BUN/Creatinine Ratio 8.4 (10.0-20.0); Glucose 68 mg/dL (74-106)
[2023-11-09] MEDS: MIDAZOLAM DRIP 50 mg/50mL 50 ML IV SCH (04:15)
[2023-11-09] MEDS: PROPOFOL 100 ML IV SCH (04:15)
[2023-11-09 04:21] LABS: Blood Urea Nitrogen 54 mg/dL (9-23)
[2023-11-09] MEDS: hydrALAZINE HCL 25 MG TAB PO SCH ×2 (05:18→12:44)
[2023-11-09 07:01] LABS: Base Excess -1.2 mmol/L (-2.0-2.0)
[2023-11-09] MEDS: PANTOPRAZOLE 40 MG/10 ML VIAL INJ IV SCH (09:08)
[2023-11-09 09:19] LABS: Base Excess -0.6 mmol/L (-2.0-2.0)
[2023-11-09] MEDS: cefTRIAXone 1GM/50ML D5W 50 ML IV SCH (09:19)
[2023-11-09] MEDS: AZITHROMYCIN 500MG/ 250ML 250 ML IV SCH (10:05)
[2023-11-09] MEDS: LABETALOL HCL 5 MG/ML 4ML SYRINGE IV PRN ×2 (10:05→14:45)
[2023-11-09] MEDS ORDERED: HYDROcodone-ACET 5/325MG TAB PO PRN (14:45)
[2023-11-09] MEDS ORDERED: NIFEdipine ER 30 MG TAB PO ONE (15:30)
[2023-11-09] MEDS: hydrALAZINE HCL 20 MG/ML VL IV PRN ×2 (17:37→23:10)
[2023-11-10] VITALS (30 sets, daily range): BP systolic 133–184; BP diastolic 78–134; PULSE 73–118; RESP 12–21; TEMP 97.4–97.8; O2SAT 91–99
[2023-11-10] MEDS: LABETALOL HCL 5 MG/ML 4ML SYRINGE IV PRN ×2 (01:40→13:27)
[2023-11-10] MEDS: IPRATROPIUM BROM 0.5 MG/2.5ML INH SOL NEB SCH ×6 (02:44→22:30)
[2023-11-10] MEDS: ALBUTEROL SULF 2.5 MG/0.5ML(0.5%) NEB SOLN NEB SCH ×6 (02:44→22:30)
[2023-11-10] MEDS: ACCU-CHEK COMFORT CURVE STRIP VI SCH ×5 (04:00→21:41)
[2023-11-10] MEDS: InsuLIN REG 1unit/0.01ml Soln (100units/ml) SC SCH ×5 (04:00→22:03)
[2023-11-10 04:16] LABS: Basophils # (auto) 0 10 ^3/uL (0-0.2); Basophils % (auto) 0.5 % (0.0-2.0); Eosinophils # (auto) 0.1 10 ^3/uL (0-0.8); Eosinophils % (auto) 1.5 % (0.0-7.0); Hematocrit 31.5 % (41.0-53.0); Hemoglobin 10.3 g/dL (13.5-17.5); Lymphocytes # (auto) 0.6 10 ^3/uL (0.4-5.4); Lymphocytes % (auto) 8.3 % (10.0-50.0); Mean Corpuscular Hgb Conc. 32.7 g/dL (32.0-36.0); Mean Corpuscular Volume 97.6 fL (80.0-100.0); Monocytes # (auto) 0.2 10 ^3/uL (0-1.3); Monocytes % (auto) 3.3 % (0.0-12.0); Neutrophils # (auto) 6.2 10 ^3/uL (1.6-8.6); Neutrophils % (auto) 86.4 % (37.0-80.0); Nucleated Red Blood Cells % 0.1 %; Red Blood Cells 3.23 10^6/uL (4.5-5.90); Red Cell Distribution Width 15.4 % (11.8-14.3); White Blood Cell 7.2 10^3/uL (4.4-10.8)
[2023-11-10 04:29] LABS: Anion Gap 16 (5-15); Calcium 7.9 mg/dL (8.7-10.4); Carbon Dioxide 23 mmol/L (20-30); Chloride 94 mmol/L (98-107); Potassium 5.2 mmol/L (3.5-5.1); Sodium 133 mmol/L (136-145)
[2023-11-10 04:35] LABS: BUN/Creatinine Ratio 9.2 (10.0-20.0); Glucose 82 mg/dL (74-106)
[2023-11-10 04:43] LABS: Blood Urea Nitrogen 69 mg/dL (9-23)
[2023-11-10] MEDS: LEVOTHYROXINE SODIUM 50 MCG TAB PO SCH (06:04)
[2023-11-10] MEDS ORDERED: SODIUM CHL 0.9% 1000 ML BAG XX ONE (07:00)
[2023-11-10] MEDS ORDERED: NIFEdipine ER 30 MG TAB PO SCH (10:00)
[2023-11-10] MEDS: PANTOPRAZOLE 40 MG/10 ML VIAL INJ IV SCH (10:17)
[2023-11-10] MEDS: cefTRIAXone 1GM/50ML D5W 50 ML IV SCH (10:17)
[2023-11-10] MEDS: AZITHROMYCIN 500MG/ 250ML 250 ML IV SCH (10:17)
[2023-11-10] MEDS: LABETALOL HCL 200 MG TAB PO SCH ×3 (10:17→23:31)
[2023-11-10] MEDS ORDERED: DEXTROSE (50%) 50ML SYRG IV PRN (13:30)
[2023-11-10] MEDS ORDERED: LORazepam 0.5 MG TAB PO PRN (13:30)
[2023-11-10] MEDS ORDERED: VANCOMYCIN 750mg/250ml 250 ML IV ONE (14:00)
[2023-11-10] MEDS ORDERED: NIFEdipine ER 30 MG TAB PO ONE (14:45)
[2023-11-10] MEDS ORDERED: LABETALOL HCL 5 MG/ML 4ML SYRINGE IV ONE (14:45)
[2023-11-10] MEDS ORDERED: EPOETIN ALFA-EPBX 10,000 UNIT/1ML VIAL SC ONE (21:00)
[2023-11-10] MEDS: NIFEdipine ER 30 MG TAB PO SCH ×2 (21:42→23:32)
[2023-11-10] MEDS: hydrALAZINE HCL 25 MG TAB PO SCH ×2 (21:43→23:31)
[2023-11-10] MEDS ORDERED: MUPIROCIN 2% OINT 15gm or 22gm FOR MRSA NARES EACHNOSTRI SCH (22:00)
[2023-11-10] MEDS ORDERED: NALOXONE HCL 1MG/ML 2ML SYRINGE ONE (22:16)
[2023-11-10] MEDS ORDERED: NALOXONE HCL 1MG/ML 2ML SYRINGE IV ONE (22:30)
[2023-11-11 02:14] VITALS: PULSE 91; RESP 18; O2SAT 97
[2023-11-11] MEDS: ALBUTEROL SULF 2.5 MG/0.5ML(0.5%) NEB SOLN NEB SCH ×2 (02:16→07:51)
[2023-11-11] MEDS: IPRATROPIUM BROM 0.5 MG/2.5ML INH SOL NEB SCH ×2 (02:17→07:51)
[2023-11-11 02:23] VITALS: PULSE 95; RESP 18; O2SAT 99
[2023-11-11 05:24] VITALS: BP 111/72; PULSE 98; RESP 17; TEMP 97; O2SAT 90
[2023-11-11 06:09] LABS: Basophils # (auto) 0 10 ^3/uL (0-0.2); Basophils % (auto) 0.3 % (0.0-2.0); Eosinophils # (auto) 0.1 10 ^3/uL (0-0.8); Eosinophils % (auto) 0.6 % (0.0-7.0); Hematocrit 32.6 % (41.0-53.0); Hemoglobin 10.7 g/dL (13.5-17.5); Lymphocytes # (auto) 0.7 10 ^3/uL (0.4-5.4); Lymphocytes % (auto) 5.7 % (10.0-50.0); Mean Corpuscular Hemoglobin 32.1 pg (28.0-32.0); Mean Corpuscular Hgb Conc. 32.8 g/dL (32.0-36.0); Mean Corpuscular Volume 97.7 fL (80.0-100.0); Monocytes # (auto) 0.3 10 ^3/uL (0-1.3); Monocytes % (auto) 2.5 % (0.0-12.0); Neutrophils # (auto) 10.8 10 ^3/uL (1.6-8.6); Neutrophils % (auto) 90.9 % (37.0-80.0); Red Blood Cells 3.34 10^6/uL (4.5-5.90); Red Cell Distribution Width 15.4 % (11.8-14.3); White Blood Cell 11.8 10^3/uL (4.4-10.8)
[2023-11-11] MEDS: ACCU-CHEK COMFORT CURVE STRIP VI SCH (06:10)
[2023-11-11] MEDS: InsuLIN REG 1unit/0.01ml Soln (100units/ml) SC SCH (06:11)
[2023-11-11] MEDS: hydrALAZINE HCL 25 MG TAB PO SCH (06:12)
[2023-11-11] MEDS: LEVOTHYROXINE SODIUM 50 MCG TAB PO SCH (06:12)
[2023-11-11 06:20] LABS: Anion Gap 14 (5-15); Carbon Dioxide 25 mmol/L (20-30); Chloride 94 mmol/L (98-107); Potassium 4.9 mmol/L (3.5-5.1); Sodium 133 mmol/L (136-145)
[2023-11-11 06:21] LABS: Calcium 8.3 mg/dL (8.5-10.1)
[2023-11-11 06:25] LABS: Glucose 94 mg/dL (74-106)
[2023-11-11 06:26] LABS: BUN/Creatinine Ratio 9.2 (10.0-20.0)
[2023-11-11 06:32] LABS: Blood Urea Nitrogen 54 mg/dL (9-23)
[2023-11-11] MEDS ORDERED: PANTOPRAZOLE 40 MG TAB PO SCH (10:00)
== END 2023-11-11 09:21 | disposition left against medical advice (07) | DRG 208 ==
LOC: ER 06:31 → TELE 11:21 → ICU WEST 16:30 → TELE-WESTW 11-10 03:36
PROVIDERS: ADMIT Nurse Practitioner Family; ATTEND Internal Medicine
PROC: 5A1945Z Respiratory Ventilation, 24-96 Consecutive Hours (ICD-10-PCS; principal; 2023-11-06)
PROC: 0BH17EZ Insertion of Endotracheal Airway into Trachea, Via Natural or Artificial Opening (ICD-10-PCS; 2023-11-06)
PROC: 5A1D70Z Performance of Urinary Filtration, Intermittent, Less than 6 Hours Per Day (ICD-10-PCS; 2023-11-06)
PROC: 5A1D70Z Performance of Urinary Filtration, Intermittent, Less than 6 Hours Per Day (ICD-10-PCS; 2023-11-08)
DX: J96.01 Acute respiratory failure with hypoxia (principal); G92.8 Other toxic encephalopathy; J18.9 Pneumonia, unspecified organism; I50.43 Acute on chronic combined systolic (congestive) and diastolic (congestive) heart failure; N18.6 End stage renal disease; I13.2 Hypertensive heart and chronic kidney disease with heart failure and with stage 5 chronic kidney disease, or end stage renal disease; I16.1 Hypertensive emergency; Z20.822 Contact with and (suspected) exposure to COVID-19; E83.39 Other disorders of phosphorus metabolism; E16.2 Hypoglycemia, unspecified; E87.5 Hyperkalemia; Z53.29 Procedure and treatment not carried out because of patient's decision for other reasons; E87.6 Hypokalemia; G40.909 Epilepsy, unspecified, not intractable, without status epilepticus; Z99.2 Dependence on renal dialysis; Z91.199 Patient's noncompliance with other medical treatment and regimen due to unspecified reason; Z89.202 Acquired absence of left upper limb, unspecified level
CPT/HCPCS: 31500; 36415; 36556; 36600; 70450; 71045; 80048; 80053; 80074; 80202; 80307; 82728; 82805; 82962; 83540; 83550; 83605; 83735; 83880; 84100; 84132; 84484; 85025; 85610; 85730; 87040; 87070; 87077; 87081; 87086; 87186; 87205; 87426; 87804; 90935; 93005; 93306; 93971; 94002; 94003; 94640; 95819; 99152; 99291; C9113; G0378; J0330; J1642; J1815; J2250; J2704; J3490; J7060